=== PATIENT | male | born 1980 | race Two or more races ===

== ENCOUNTER 2019-11-09 00:25 | Emergency (ER) | payer SELFPAY ==
[~2019-11-09] VITALS: Ht 177.8 cm; Wt 91.0 kg
[2019-11-09] MEDS ORDERED: ACETAMINOPHEN 325MG TABLET PO STA (00:59)
[2019-11-09 01:18] LABS: BASOPHILS % 0.4 % (0.0-2.0); EOSINOPHILS % 1.4 % (0.0-5.0); HEMATOCRIT. 43.4 % (42.0-52.0); HEMOGLOBIN. 15.1 g/dL (14.0-18.0); LYMPHOCYTES % 18.5 % (20.0-50.0); MEAN CORPUSCULAR HEMOGLOBIN 30.4 pg (28.0-32.0); MEAN CORPUSCULAR VOLUME 87.3 fL (80.0-94.0); MEAN PLATELET VOLUME 7.4 fl (7.4-10.4); MONOCYTES % 5.3 % (2.0-8.0); NEUTROPHILS % 74.4 % (40.0-76.0); PLATELET 290 x1000/uL (130-400); RED BLOOD CELL COUNT 4.97 mill/uL (4.7-6.1); RED CELL DISTRIBUTION WIDTH 14.8 % (11.6-14.6)
[2019-11-09 01:23] LABS: CHLORIDE 111 mEq/L (98-107)
[2019-11-09 01:27] LABS: ETHANOL BLOOD 258 mg/dL
[2019-11-09 06:05] VITALS: BP 125/85
== END 2019-11-09 06:59 | disposition home or self-care (01) ==
LOC: ER 00:25
DX: S09.8XXA Other specified injuries of head, initial encounter (principal); W18.39XA Other fall on same level, initial encounter; Y93.89 Activity, other specified; Y92.89 Other specified places as the place of occurrence of the external cause; Y99.8 Other external cause status; T51.0X1A Toxic effect of ethanol, accidental (unintentional), initial encounter
CPT/HCPCS: 36415; 80053; 80320; 85025; 93005; 99285; G0480